=== PATIENT | female | born 1990 | race Caucasian/White ===

== ENCOUNTER 2017-10-18 15:50 | Emergency (ER) | payer SELFPAY ==
[~2017-10-18] VITALS: Ht 160 cm; Wt 61.2 kg
[2017-10-18 16:00] VITALS: BP 148/99
[2017-10-18 16:24] VITALS: BP 148/99
--- NOTE | 2017-10-18 19:27 | Emergency Room Report ---
History of Present Illness General Chief Complaint: Medical Clearance Source: Patient Present Illness HPI 26-year-old female presents ED for evaluation. Patient is in police custody and is here for longterm clearance. [employer] states that after being arrested was banging her head on the ground and in the squad car. No LOC. On arrival patient is agitated and combative, screaming. Denies any headache. Denies any nausea or vomiting. Denies drug use. Patient states she wants to leave. No other aggravating relieving factors. Denies any other associated symptom Allergies: Coded Allergies: GABAPENTIN (Verified Allergy, Unknown, 10/18/17) Patient History Past Medical History: none Past Surgical History: none Pertinent Family History: none Social History: Denies: smoking, alcohol use, drug use Last Menstrual Period: unknown Now: No Immunizations: UTD Reviewed Nursing Documentation: PMH: Agreed, PSxH: Agreed Nursing Documentation-PMH Past Medical History: No Stated History Review of Systems All Other Systems: negative except mentioned in HPI Physical Exam Vital Signs Date Time Temp Pulse Resp B/P (MAP) Pulse Ox O2 Delivery O2 Flow Rate FiO2 10/18/17 15:52 98.8 99 24 148/99 100 Room Air Sp02 EP Interpretation: reviewed, normal General Appearance: alert, non-toxic, other - agitated/combative Head: normocephalic, atraumatic Eyes: bilateral eye normal inspection, bilateral eye PERRL ENT: hearing grossly normal, normal pharynx, no angioedema, normal voice Neck: full range of motion, supple/symm/no masses Respiratory: chest non-tender, lungs clear, normal breath sounds, speaking full sentences Cardiovascular #1: regular rate, rhythm, no edema Cardiovascular #2: 2+ carotid (R), 2+ carotid (L), 2+ radial (R), 2+ radial (L) , 2+ dorsalis pedis (R), 2+ dorsalis pedis (L) Gastrointestinal: normal bowel sounds, non tender, soft, non-distended, no guarding, no rebound Rectal: deferred Genitourinary: normal inspection, no CVA tenderness Musculoskeletal: back normal, gait/station normal, normal range of motion, non- tender Neurologic: alert, oriented x3, responsive, motor strength/tone normal, sensory intact, speech normal Psychiatric: judgement/insight normal, memory normal, no suicidal/homicidal ideation, anxious Reflexes: 3+ bicep (R), 3+ bicep (L), 3+ tricep (R), 3+ tricep (L), 3+ knee (R) , 3+ knee (L) Skin: normal color, no rash, warm/dry, well hydrated Lymphatic: no adenopathy Medical Decision Making Diagnostic Impression: Primary Impression: Medical clearance for incarceration ER Course Hospital Course 26-year-old female presents to ED for and longterm clearance. patient reportedly hit her head multiples after arrest Clinical course Patient placed on stretcher. Handcuffs. After initial history, physical exam reveals a young female who is awake alert oriented x3. Very agitated and screaming. Given history of head injury I recommended option for CT which patient declined. Patient wants to leave and refusing any additional workup Patient has right to refuse. However will sign out AGAINST MEDICAL ADVICE Understands the risks of leaving. Patient has competency to make her own decisions. Signed AMA form. Diagnosis - medical clearance for incarceration patient leaves AMA in [employer] custody Last Vital Signs Date Time Temp Pulse Resp B/P (MAP) Pulse Ox O2 Delivery O2 Flow Rate FiO2 10/18/17 16:24 98.8 24 148/99 100 Room Air 10/18/17 15:52 99 Status: unchanged Disposition: AGAINST MEDICAL ADVICE Condition: Stable Referrals: NOT CHOSEN IPA/,REFERRING (PCP) Departure Forms: Senior Living Clearance Patient Instructions: Head Injury, Adult, [id number] AMISH PEREZ M.D. Oct 18, 2017 19:27
== END 2017-10-18 16:24 | disposition left against medical advice (07) ==
LOC: EMR 16:20
DX: S09.90XA Unspecified injury of head, initial encounter (principal); Z53.21 Procedure and treatment not carried out due to patient leaving prior to being seen by health care provider; Z88.8 Allergy status to other drugs, medicaments and biological substances; R45.1 Restlessness and agitation; W22.8XXA Striking against or struck by other objects, initial encounter; Y92.89 Other specified places as the place of occurrence of the external cause
CPT/HCPCS: 99283